=== PATIENT | female | born 1940 | race Caucasian/White ===

== ENCOUNTER 2018-08-08 07:12 | Emergency (ER) | payer SELFPAY ==
[2018-08-08 07:12] VITALS: BMI 29.7
[2018-08-08 07:22] VITALS: BP 172/95; PULSE 78; RESP 18; TEMP 98.4; O2SAT 97
--- NOTE | 2018-08-08 08:34 | RAD ---
Date of service: 08/08/2018 PROCEDURE: Radiographs of the Right Shoulder HISTORY: r/o fx COMPARISON: No prior. FINDINGS: BONES: Normal. No fracture. JOINTS: Glenohumeral osteoarthritis. Acromioclavicular joint appears preserved. SOFT TISSUES: Normal. OTHER FINDINGS: None. IMPRESSION: Glenohumeral osteoarthritis. No acute fracture.
--- NOTE | 2018-08-08 12:08 | C.PDOC ---
History Of Present Illness 78-year-old female, presents to the emergency department with complaints of chronic joint pain "for a long time." Patient denies any recent trauma/falling, fever or any other associated symptoms. Patient denies taking any pain meds. Chief Complaint (Nursing): Upper Extremity Problem/Injury History Per: Patient History/Exam Limitations: no limitations Past Medical History Reviewed: Historical Data, Nursing Documentation, Vital Signs Vital Signs: Last Vital Signs Temp 98.4 F 08/08/18 07:16 Pulse 78 08/08/18 07:16 Resp 18 08/08/18 07:16 BP 172/95 H 08/08/18 07:16 Pulse Ox 97 08/08/18 07:16 - Medical History PMH: Gastritis, HTN Denies: Chronic Kidney Disease Surgical History: Appendectomy - [facility] INJECT/INFUSE NEC (06/23/14) Family History: States: No Known Family Hx - Social History Hx Alcohol Use: No Hx Substance Use: No - Immunization History Hx Tetanus Toxoid Vaccination: No Hx Influenza Vaccination: No Review Of Systems Constitutional: Negative for: Fever Respiratory: Negative for: Shortness of Breath Gastrointestinal: Negative for: Vomiting Musculoskeletal: Positive for: Arm Pain, Hand Pain, Leg Pain Neurological: Negative for: Weakness, Numbness Physical Exam - Physical Exam Appears: Non-toxic, No Acute Distress Skin: Normal Color, Warm, Dry, No Rash Head: Atraumatic, Normacephalic Eye(s): bilateral: Normal Inspection, PERRL, EOMI, Abnormal Pupil, Conjunctiva Pale, Eyelid Inflammation, Photophobia, Scleral Icterus, Other Nose: Normal Oral Mucosa: Moist Lips: Normal Appearing Neck: Normal ROM Chest: Symmetrical Cardiovascular: Rhythm Regular, No Murmur Respiratory: Normal Breath Sounds, No Accessory Muscle Use Extremity: Capillary Refill (<2 seconds), No Deformity, Other ( decreased ROM in both knees and shoulders. Arthritic changes in B/L wrists) Neurological/Psych: Oriented x3, Normal Speech ED Course And Treatment O2 Sat by Pulse Oximetry: 97 Pulse Ox Interpretation: Normal (RA) Disposition - Disposition Referrals: [facility] [Outside] [facility] [Outside] Disposition: HOME/ ROUTINE Disposition Time: 08:25 Condition: GOOD Additional Instructions: KAMILAH CORMIER, thank you for letting us take care of you today. Your provider was Navarro Ramirez DO and you were treated for SHOULDER PAIN. The emergency medical care you received today was directed at your acute symptoms. If you were prescribed any medication, please fill it and take as directed. It may take several days for your symptoms to resolve. Return to the Emergency Department if your symptoms worsen, do not improve, or if you have any other problems. Please contact your doctor or call one of the physicians/clinics you have been referred to that are listed on the Patient Visit Information form that is included in your discharge packet. Bring any paperwork you were given at discharge with you along with any medications you are taking to your follow up visit. Our treatment cannot replace ongoing medical care by a primary care provider outside of the emergency department. Thank you for allowing the [facility] team to be part of your care today. Take over the counter tylenol as directed for pain. Follow up with the clinic in 3-5 days for outpatient care. KAMILAH CORMIER, young por dejarnos cuidar de ti hoy. Bobby proveedor fue Navarro Ramirez DO y recibi tratamiento para el DOLOR DEL HOMBRO. La atencin mdica de emergencia que recibi hoy se dirigi a geogre sntomas agudos. Si le recetaron algn medicamento, llnelo y tmelo segn las indicaciones. Los sntomas pueden tardar varios dewey en resolverse. Regrese al Departamento de Emergencias si george sntomas empeoran, no mejoran o si tiene otros problemas. Comunquese con bobby mdico o llame a vipin de los mdicos / clnicas a los que ramos sido referido que figuran en el formulario de Informacin de visita al paciente que se incluye en bobby paquete de claudette. Lleve con usted a bobby consulta de seguimiento toda la documentacin que recibi del claudette junto con los medicamentos que est tomando. Nuestro tratamiento no puede reemplazar la atencin mdica continua por parte de un proveedor de atencin primaria fuera del departamento de emergencias. Young por permitir que el equipo de [facility] [facility] sea parte de bobby atencin hoy. Charla el tylenol contador josué se indica para el dolor. Aamir un seguimiento con la clnica en 3-5 dewey para la atencin ambulatoria. Instructions: Osteoarthritis (DC) Forms: Gen Discharge Inst Greenlandic, [employer] (Greenlandic) Print Language: FAROESE - Clinical Impression Clinical Impression: Osteoarthritis - Scribe Statement The provider has reviewed the documentation as recorded by the Scribe (Polly Muhammad) Provider Attestation: All medical record entries made by the Scribe were at my direction and personally dictated by me. I have reviewed the chart and agree that the record accurately reflects my personal performance of the history, physical exam, medical decision making, and the department course for this patient. I have also personally directed, reviewed, and agree with the discharge instructions and disposition.
== END 2018-08-08 08:50 | disposition home or self-care (01) ==
LOC: C.ER 07:12
DX: M19.011 Primary osteoarthritis, right shoulder (principal)